=== PATIENT | male | born 1990 | race Caucasian/White ===

== ENCOUNTER 2016-08-08 09:03 | Day surgery (SDC) | payer OTHER ==
[~2016-08-08] VITALS: Ht 165.1 cm; Wt 48.9 kg
[2016-08-08 09:38] VITALS: Ht 165.1 cm; Wt 48.9 kg
[2016-08-08] MEDS ORDERED: ATIVAN (09:58)
[2016-08-08] MEDS ORDERED: ZOFRAN (09:58)
[2016-08-08] MEDS ORDERED: LIDOCAINE 4% SOLUTION 50 ML BTL ONE (10:12)
[2016-08-08] MEDS ORDERED: FENTAnyl 50 MCG/ML VIAL ONE ×2 (11:15→11:16)
[2016-08-08] MEDS ORDERED: MIDAZOLAM 1 MG/ML 2 ML INJ ONE ×3 (11:16)
--- NOTE | 2016-08-08 11:46 | GILP ---
DATE OF PROCEDURE: PROCEDURE: Colonoscopy and ileoscopy. PREOPERATIVE DIAGNOSIS: Patient presenting with a history of chronic diarrhea, a history of weight loss and a history of Crohn's disease. At this time the procedure is performed to study the status of the Crohn's disease. The patient never has not had a colonoscopy in many, many years. POSTOPERATIVE DIAGNOSES: 1. There is evidence of severe nodularity of the ileum for about 15 cm from the ileocecal valve. S everal areas of erythema are noted; however, no deep ulcers are noted in this area. Biopsies were d one. 2. The transverse colon and descending colon showed a decreased number of folds. Flattening of the folds were noted. Biopsies were done. DESCRIPTION OF PROCEDURE: After informed written consent was obtained the patient was asked to lie on the left lateral side. A total of 125 mcg of fentanyl and 5 mg of Versed was given as intravenou s anesthesia. When the patient became somnolent, the Olympus video colonoscope was introduced into the rectum and the scope was advanced all the way to the cecum and terminal ileum. The terminal ileum for about 15 cm from the ileocecal cecal valve showed evidence of multiple polyps, multiple areas of erythema n oted as well, but no deep ulcers, no strictures noted. Biopsies were done to rule out Crohn's disea se. The ascending colon and transverse colon showed evidence of a decreased number of folds, with a flattening of the folds. Biopsies were done to rule out any evidence of inflammatory bowel disease . On the way out the rectum showed evidence of several areas of erythema and biopsies were done to rule out proctitis. The scope at this time was withdrawn and the procedure was terminated. PLAN: Recommend to wait for the pathology report. Dictated By: ARIEL NOBLES/NTS Conf#: [id number] DID#: [id number] CC: ANN DASILVA MD;*EndCC*
--- NOTE | 2016-08-08 11:52 | GILP ---
DATE OF PROCEDURE: 08/08/2016 PROCEDURE: Esophagogastroduodenoscopy. PREOPERATIVE DIAGNOSIS: Patient presenting with history of weight loss and vomiting, history of [employer] hn's disease, rule out peptic ulcer disease, rule out Crohn's disease. POSTOPERATIVE DIAGNOSES: 1. Mild patchy gastritis. 2. Mild reflux esophagitis. 3. Decreased folds noted in the duodenum, biopsy was done to rule out celiac sprue. DESCRIPTION OF PROCEDURE: After informed written consent was obtained, the patient was asked to lie on the left lateral side. A total of 5 mg Versed and 125 mcg of fentanyl was given as intravenous anesthesia. When the patient became somnolent, the Olympus video upper endoscope was introduced into the orophar ynx, then into the esophagus. Several areas of erythema noted just above the GE junction indicating mild reflux esophagitis. Biopsies were done to rule out esophagitis and Lee's esophagus. Scop e at this time was advanced into the stomach. Several areas of erythema noted in the antrum and the fundus. Biopsy was done from the antrum and the fundus to rule out H. pylori infection. Duodenum was examined. There is decreased number of folds noted in the second and third part of the duodenum . Biopsies were obtained to rule out celiac sprue. There is no evidence of Crohn's disease in this part of the duodenum. Scope at this time was withdrawn. On the way out, no additional abnormaliti es detected and the procedure was terminated. PLAN: Recommend omeprazole 40 mg a day in the morning for 8 weeks. Dictated By: ARIEL NOBLES/NTS Conf#: [id number] DID#: [id number] CC: ANN DASILVA MD; ARIEL BEE MD;*End*
== END 2016-08-08 15:21 | disposition home or self-care (01) ==
LOC: GIL 09:03
PROVIDERS: ATTEND Internal Medicine Gastroenterology
DX: K21.0 Gastro-esophageal reflux disease with esophagitis (principal); K29.60 Other gastritis without bleeding
CPT/HCPCS: 43239; 45380; 88305; 88312; J2250; J3010; Z7610